=== PATIENT | female | born 1990 | race Caucasian/White ===

== ENCOUNTER 2016-04-16 10:56 | Emergency (ER) | payer MEDICAID ==
--- NOTE | 2016-04-16 11:11 | ER Document Report ---
ED Medical Screen (RME) - General Stated Complaint: BACK PAIN Mode of Arrival: Ambulatory Information source: Patient Notes: c/o back pain that has been chronic but yesterday had a sensation of "something like my rib fell down." Pain is worse with sitting and movement of her back. Worse on right side and radiates from front to back. no bowel/bladder incontinence, dysuria, paresthesias Has tried anti-inflammatories and stretching without relief Denies any MVC, recent injury history of same since 17 years old and has extensive work up including imaging studies I have greeted and performed a rapid initial assessment of this patient. A comprehensive ED assessment and evaluation of the patient, analysis of test results and completion of the medical decision making process will be conducted by additional ED providers. TRAVEL OUTSIDE OF THE [place] IN LAST 30 DAYS: No - Related Data Allergies/Adverse Reactions: No Known Allergies Allergy (Verified 04/16/16 11:06) Past Medical History - Past Medical History Cardiac Medical History: Denies: Hx Coronary Artery Disease, Hx Heart Attack, Hx Hypertension Pulmonary Medical History: Denies: Hx Asthma, Hx Bronchitis, Hx COPD, Hx Pneumonia Neurological Medical History: Denies: Hx Cerebrovascular Accident, Hx Seizures GI Medical History: Reports: Hx Crohn's Disease. Denies: Hx Hepatitis Musculoskeltal Medical History: Denies Hx Arthritis Psychiatric Medical History: Reports: Hx Bipolar Disorder, Hx Depression, Hx Schizophrenia Infectious Medical History: Denies: Hx Hepatitis, Hx HIV - Immunizations Hx Diphtheria, Pertussis, Tetanus Vaccination: Yes Physical Exam - Vital signs Vitals: Temp Pulse Resp BP Pulse Ox 98.1 F 102 H 14 126/74 H 100 04/16/16 11:04/16/16 11:04/16/16 11:04/16/16 11:04/16/16 11:00 - Notes Notes: ambulatory without limp, steady gait Course - Vital Signs Vital signs: Temp Pulse Resp BP Pulse Ox 98.1 F 102 H 14 126/74 H 100 04/16/16 11:04/16/16 11:00 04/16/16 11:00 04/16/16 11:04/16/16 11:00
[2016-04-16 11:42] LABS: APPEARANCE,URINE SLIGHTLY-CLOUDY; BILIRUBIN,URINE NEGATIVE (NEGATIVE); GLUCOSE, URINE NEGATIVE (NEGATIVE); KETONES,URINE NEGATIVE (NEGATIVE); LEUKOCYTE ESTERASE,URINE TRACE (NEGATIVE); NITRITE,URINE NEGATIVE (NEGATIVE); PROTEIN,URINE NEGATIVE (NEGATIVE); URINE SPECIFIC GRAVITY 1.016; UROBILINOGEN,URINE NEGATIVE mg/dL (<2.0)
[2016-04-16] MEDS ORDERED: KETOROLAC TROMETHAMINE 60 MG/2 ML SDV IM ONE (12:09)
--- NOTE | 2016-04-16 12:15 | ER Document Report ---
HPI - HPI Patient complains to provider of: right side lower lateral thorax pain Onset: Other - 8 months Onset/Duration: Persistent Quality of pain: Sharp Pain Level: 4 Context: 25 yo female c/o sensation of movement in right lower lateral side/thorax pain, feels somthing that hurts, with chronic right back pain. Originally started and dr are trying to figure it out. Even cholecystectomy does not relieve it. She just wants it removed and the pain to stop. Has not made her last 3 appts, and can't get into the pain management dr. she was referred to. Worse when sits, better when stands. Associated Symptoms: None Exacerbated by: Movement, Deep breathing Relieved by: Denies Similar symptoms previously: Yes Recently seen / treated by doctor: No - ROS ROS below otherwise negative: Yes Systems Reviewed and Negative: Yes All other systems reviewed and negative - REPRODUCTIVE Reproductive: DENIES: : - DERM Skin Color: Normal Past Medical History - General Information source: Patient - Social History Smoking Status: Unknown if Ever Smoked Frequency of alcohol use: None Drug Abuse: None Family History: Reviewed & Not Pertinent Renal/ Medical History: Denies: Hx Peritoneal Dialysis GI Medical History: Reports: Hx Crohn's Disease Psychiatric Medical History: Reports: Hx Bipolar Disorder, Hx Depression, Hx Schizophrenia Past Surgical History: Reports: Hx Cholecystectomy - Immunizations Hx Diphtheria, Pertussis, Tetanus Vaccination: Yes Vertical Provider Document - CONSTITUTIONAL Agree With Documented VS: Yes Exam Limitations: No Limitations General Appearance: No Apparent Distress - INFECTION CONTROL TRAVEL OUTSIDE OF THE [place] IN LAST 30 DAYS: No - HEENT HEENT: Normal ENT Exam - NECK Neck: Supple - RESPIRATORY Respiratory: Breath Sounds Normal, No Respiratory Distress O2 Sat by Pulse Oximetry: 100 - CARDIOVASCULAR Cardiovascular: Regular Rate, Regular Rhythm - GI/ABDOMEN Gastrointestinal: Abdomen Soft, Abdomen Non-Tender, No Organomegaly - BACK Back: Normal Inspection. negative: CVA Tenderness-Right Notes: tender lower right thoracic back muscle - MUSCULOSKELETAL/EXTREMETIES Musculoskeletal/Extremeties: MAEW, FROM, Tender - 12th rib - NEURO Level of Consciousness: Awake, Alert - DERM Integumentary: Warm, Dry, No Rash Course - Re-evaluation Re-evalutation: 04/16/16 12:15 Urine is basically negative urine culture added. - Vital Signs Vital signs: Temp Pulse Resp BP Pulse Ox 98.1 F 102 H 14 126/74 H 100 04/16/16 11:00 04/16/16 11:00 04/16/16 11:00 04/16/16 11:00 04/16/16 11:00 - Laboratory Laboratory results interpreted by me: 04/16/16 11:15 Urine Blood SMALL H Ur Leukocyte Esterase TRACE H Discharge - Discharge Clinical Impression: lower thoracic muscle tenderness, right 12th rib tenderness Chronic pain Qualifiers: Chronic pain type: other chronic pain Qualified Code(s): G89.29 - Other chronic pain Condition: Good Disposition: HOME, SELF-CARE Instructions: Warm Packs ([facility]), Low Back Pain ([facility]), Arthralgia ([facility]), Myalagia (Muscle Pain) ([facility]), Ultram ([facility]) Additional Instructions: warm compress see your primary doctor and see the pain management doctor as planned to er if worse Prescriptions: Tramadol HCl [Ultram 50 mg Tablet] 50 mg PO ASDIR PRN #15 tablet PRN Reason: Forms: Return to School
[2016-04-16 12:37] VITALS: BP 125/72
== END 2016-04-16 12:37 | disposition home or self-care (01) ==
LOC: ER 10:56
DX: M54.6 Pain in thoracic spine (principal); G89.29 Other chronic pain; R09.89 Other specified symptoms and signs involving the circulatory and respiratory systems; Z90.49 Acquired absence of other specified parts of digestive tract
CPT/HCPCS: 99283; 96372; 87086; 81025; 81001; J1885

== ENCOUNTER → 2016-05-28 | Outpatient (CLI) | payer MEDICAID | LOC: OD 11:17 | PROVIDERS: ATTEND Physician Assistant | DX: M54.6 Pain in thoracic spine (principal) | CPT/HCPCS: 72070 ==